=== PATIENT | female | born 2000 | race Caucasian/White ===

== ENCOUNTER 2022-08-31 21:25 | Emergency (ER) | payer MEDICAID, OTHER ==
[~2022-08-31] VITALS: Ht 160 cm; Wt 52.3 kg
[~2022-08-31 21:25] MED LIST: ONDA8TAB9 PO
[2022-08-31 21:36] VITALS: BP 113/65
[2022-08-31] MEDS ORDERED: proparacaine 0.5% ophthalmic drops 15ml EACHEYE ONE (22:25)
[2022-08-31] MEDS ORDERED: COROS LEFTEYE (23:04)
[2022-08-31] MEDS ORDERED: erythromycin ophthalmic ointment 1gm tube LEFTEYE ONE (23:10)
== END 2022-08-31 23:18 | disposition home or self-care (01) ==
LOC: ER 21:26
DX: S05.02XA Injury of conjunctiva and corneal abrasion without foreign body, left eye, initial encounter (principal); X58.XXXA Exposure to other specified factors, initial encounter; Y93.89 Activity, other specified; Y92.89 Other specified places as the place of occurrence of the external cause; Y99.8 Other external cause status
CPT/HCPCS: 99283

== ENCOUNTER 2024-04-27 11:18 | Emergency (ER) | payer OTHER ==
[~2024-04-27] VITALS: Ht 160 cm; Wt 52.2 kg
[~2024-04-27 11:18] MED LIST changes: +COROS LEFTEYE
[2024-04-27 11:24] VITALS: BP 111/84; PULSE 91; RESP 16; TEMP 98.1; O2SAT 99
[2024-04-27] MEDS: TINIDAZOLE 500 MG TABLET PO ONE (15:10)
[2024-04-27] MEDS: LEVONORGESTREL 1.5MG tablet 1.5 MG TABLET PO ONE (15:11)
[2024-04-27] MEDS: CefTRIAXone 500MG IM Kit w/LIDOcaine (for pt below or = to 150kg) IM ONE (15:11)
[2024-04-27] MEDS: azithromycin 250mg tablet PO ONE (15:11)
== END 2024-04-27 19:18 | disposition home or self-care (01) ==
LOC: EEVIPCON 11:18 → ER 11:18
DX: A64 Unspecified sexually transmitted disease (principal)
CPT/HCPCS: 96372; 99284; J0696